=== PATIENT | female | born 1970 | race African-American/Black ===

== ENCOUNTER → 2020-03-07 | Outpatient (CLI) | payer BC ==
--- NOTE | 2020-03-13 15:34 | RAD ---
EXAM: Bilateral screening mammogram. HISTORY: 49-year-old female presents for screening mammography. TECHNIQUE: Full-field digital craniocaudal and mediolateral oblique views of both breasts are obtained for evaluation. Computer aided detection was applied. COMPARISON: 02/07/2018 BREAST PARENCHYMAL DENSITY: Level B - Scattered fibroglandular densities. FINDINGS: There is no new suspicious mass, microcalcification or region of architectural distortion. IMPRESSION: BI-RADS Category 2: Benign finding(s). RECOMMENDATION: Annual mammography is recommended. If your mammogram demonstrates that you have dense breast tissue, which could hide abnormalities, and if you have other risk factors for breast cancer that have been identified, you might benefit from supplemental screening tests that may be suggested by your ordering physician. Dense breast tissue, in and of itself, is a relatively common condition. This information is not provided to cause undue concern, but rather to raise your awareness and to promote discussion with your physician regarding the presence of other risk factors, in addition to dense breast tissue. A report of your mammography results will be sent to you and your physician. You should contact your physician if you have any questions or concerns regarding this report. Mammography is a sensitive method for finding small breast cancers, but it does not detect them all and is not a substitute for careful clinical examination. A negative mammogram does not negate a clinically suspicious finding and should not result in delay in biopsying a clinically suspicious abnormality. PQRS compliance statement - Patient information was entered into a reminder system with a target due date for the next mammogram. "Our facility is accredited by the [employer] Mammography Program." Electronically signed by: Norah Kelly MD (03/13/2020 3:31 PM) [id number]
== END ==
LOC: MAMMO 12:40
PROVIDERS: ATTEND Family Medicine
DX: Z12.31 Encounter for screening mammogram for malignant neoplasm of breast (principal)
CPT/HCPCS: 77067

== ENCOUNTER → 2020-03-25 | Outpatient (CLI) | payer BC ==
[2020-03-25 18:02] LABS: BASO % 0 % (0-3); EOS # 0.2 x10^3/uL (0.0-0.7); EOS % 3 % (0-3); HEMATOCRIT 41.4 % (36.0-47.0); HEMOGLOBIN 13.7 g/dL (12.0-15.5); LYMPH # 1.3 x10^3/uL (1.0-4.8); LYMPH % 22 % (24-48); MEAN CORPUSCULAR HEMOGLOBIN 32 pg (25-35); MEAN CORPUSCULAR HGB CONC 33 g/dL (31-37); MEAN CORPUSCULAR VOLUME 95 fL (79-100); MONO # 0.4 x10^3/uL (0.0-1.1); MONO % 7 % (0-9); NEUT % 67 % (31-73); PLATELET COUNT 290 x10^3/uL (140-400); RED BLOOD COUNT 4.35 x10^6/uL (3.50-5.40)
[2020-03-26 21:23] LABS: ESTRADIOL LEVEL 83.9 pg/mL (.); FSH 12.2 mIU/mL (.); LUTEINIZING HORMONE 9.2 mIU/mL (.)
== END ==
LOC: LAB 16:35
PROVIDERS: ATTEND Obstetrics & Gynecology
DX: R53.83 Other fatigue (principal); R23.2 Flushing
CPT/HCPCS: 36415; 82607; 82626; 82652; 82670; 82746; 83001; 83002; 84402; 84403; 85025

== ENCOUNTER → 2020-07-10 | Outpatient (CLI) | payer OTHER ==
[~2020-07-10] MED LIST: ALPR0.254 PO; CHOL400T36 PO; DIPH1TAB PO; FURO20TA3 PO; GABA800T5 PO; LOSA100T14 PO; NIFE30TA15 PO; POTA-163 PO; PRAZ2CAP2 PO; SERT100T PO; TIZA2CAP2 PO
--- NOTE | 2020-07-10 12:59 | RAD ---
L-spine 2 views INDICATION: Chronic low back pain. Disability request. Comparisons: None. FINDINGS: There are 5 lumbar type vertebrae. Alignment is anatomic. The vertebral body heights are preserved. T here are multilevel facet hypertrophic changes most conspicuous at the L4-5 and L5-S1 levels. There i s lucency through the pars interarticularis of L5, compatible with chronic bilateral pars defects. No acute fracture is evident. No aggressive appearing bony lesions. The disc spaces are preserved. The sacroiliac joints are unremarkable. The soft tissues show cholecystectomy clips in the right upper qu adrant abdomen. There are sutures in the left upper quadrant and right mid abdomen suggesting previou s bowel surgery. IMPRESSION: Multilevel facet hypertrophic changes with chronic bilateral L5 pars fractures but no acute or aggres sive bony lesions. Electronically signed by: Kandice Mora MD (07/10/2020 12:57 PM) [id number]
== END ==
LOC: DXRAD 09:10
PROVIDERS: ATTEND Surgery
DX: M48.56XA Collapsed vertebra, not elsewhere classified, lumbar region, initial encounter for fracture (principal); M41.9 Scoliosis, unspecified; M54.5 Low back pain; G89.29 Other chronic pain; Z90.49 Acquired absence of other specified parts of digestive tract
CPT/HCPCS: 72100